=== PATIENT | male | born 1965 ===

== ENCOUNTER → 2025-06-16 | Outpatient (CLI) | payer OTHER ==
[2025-06-16 16:23] LABS: BASOPHILS ABSOLUTE AUTO 0.03 K/mm3 (0.00-0.23); BASOPHILS PERCENT AUTO 0 % (0-2); EOSINOPHILS ABSOLUTE AUTO 0.20 K/mm3 (0.00-0.68); EOSINOPHILS PERCENT AUTO 3 % (0-6); Hematocrit 43.2 % (37.0-53.0); Hemoglobin 14.6 g/dL (13.5-17.5); IMMATURE GRAN ABSOLUTE AUTO 0.01 K/mm3 (0.00-0.10); IMMATURE GRAN PERCENT AUTO 0 % (0-1); LYMPHOCYTES ABSOLUTE AUTO 1.49 K/mm3 (0.84-5.20); LYMPHOCYTES PERCENT AUTO 22 % (21-46); MONOCYTES ABSOLUTE AUTO 0.37 K/mm3 (0.16-1.47); MONOCYTES PERCENT AUTO 5 % (4-13); Mean Corpuscular HGB Conc 33.8 g/dL (31.5-36.5); Mean Corpuscular Volume 91 fL (80-100); NEUTROPHILS ABSOLUTE AUTO 4.83 K/mm3 (1.96-9.15); NEUTROPHILS PERCENT AUTO 70 % (41-73); NRBC ABSOLUTE 0.00 K/mm3 (0.00-0.02); NRBC Auto 0.0 /100 WBC (0.0-0.2); Platelet Count 199 K/mm3 (150-400); RDW Coefficient Variation 12.7 % (11.7-14.2); RDW Standard Deviation 41.8 fL (35.1-46.3)
[2025-06-16 16:33] LABS: Alanine Aminotransfer (ALT/SGP 35.0 U/L (12-78); Albumin, Blood 3.5 g/dL (3.4-5.0); Albumin/Globulin Ratio 0.9 (0.8-1.8); Anion Gap 13.0 mmol/L (6-16); Aspartate Aminotrans (AST/SGOT 23.0 U/L (12-37); Bilirubin, Total 0.3 mg/dL (0.1-1.0); Blood Urea Nitrogen 21.0 mg/dL (8-24); CO2, Blood 27.0 mmol/L (21-32); Calcium, Blood 9.1 mg/dL (8.5-10.1); Chloride, Blood 106.0 mmol/L (98-108); Creatinine, Blood 1.66 mg/dL (0.60-1.20); Globulin, Blood 4.0 g/dL (2.2-4.0); Glucose, Blood 114.0 mg/dL (70-99); Potassium, Blood 3.5 mmol/L (3.5-5.5); Sodium, Blood 142.0 mmol/L (136-145); Total Protein, Blood 7.5 g/dL (6.4-8.2)
== END ==
LOC: LAB SHORT 16:17 → LAB 16:17
PROVIDERS: Physician Assistant
DX: R06.02 Shortness of breath (principal)
CPT/HCPCS: 80053; 83880; 84484; 85025; 85379

== ENCOUNTER 2025-06-17 11:57 | Inpatient (IN) | payer OTHER ==
[~2025-06-17] VITALS: Ht 188 cm; Wt 126.0 kg
[2025-06-17 13:14] LABS: BASOPHILS ABSOLUTE AUTO 0.04 K/mm3 (0.00-0.23); BASOPHILS PERCENT AUTO 0 % (0-2); EOSINOPHILS ABSOLUTE AUTO 0.11 K/mm3 (0.00-0.68); EOSINOPHILS PERCENT AUTO 1 % (0-6); Hematocrit 42.9 % (37.0-53.0); Hemoglobin 14.5 g/dL (13.5-17.5); IMMATURE GRAN ABSOLUTE AUTO 0.02 K/mm3 (0.00-0.10); IMMATURE GRAN PERCENT AUTO 0 % (0-1); LYMPHOCYTES ABSOLUTE AUTO 1.19 K/mm3 (0.84-5.20); LYMPHOCYTES PERCENT AUTO 12 % (21-46); MONOCYTES ABSOLUTE AUTO 0.66 K/mm3 (0.16-1.47); MONOCYTES PERCENT AUTO 7 % (4-13); Mean Corpuscular HGB Conc 33.8 g/dL (31.5-36.5); Mean Corpuscular Volume 91 fL (80-100); NEUTROPHILS ABSOLUTE AUTO 7.83 K/mm3 (1.96-9.15); NEUTROPHILS PERCENT AUTO 80 % (41-73); NRBC ABSOLUTE 0.00 K/mm3 (0.00-0.02); NRBC Auto 0.0 /100 WBC (0.0-0.2); Platelet Count 208 K/mm3 (150-400); RDW Coefficient Variation 12.5 % (11.7-14.2); RDW Standard Deviation 41.2 fL (35.1-46.3)
[2025-06-17 13:21] LABS: C-REACTIVE PROTEIN, EXT RANGE 1.12 mg/dL (0.000-0.300)
[2025-06-17 13:23] LABS: Alanine Aminotransfer (ALT/SGP 32.0 U/L (12-78); Albumin, Blood 3.3 g/dL (3.4-5.0); Albumin/Globulin Ratio 0.8 (0.8-1.8); Anion Gap 6.0 mmol/L (3-11); Aspartate Aminotrans (AST/SGOT 21.0 U/L (12-37); Bilirubin, Total 0.8 mg/dL (0.1-1.0); Blood Urea Nitrogen 15.0 mg/dL (8-24); CO2, Blood 27.0 mmol/L (21-32); Calcium, Blood 8.8 mg/dL (8.5-10.1); Chloride, Blood 105.0 mmol/L (98-108); Creatinine, Blood 1.39 mg/dL (0.60-1.20); Globulin, Blood 4.1 g/dL (2.2-4.0); Glucose, Blood 103.0 mg/dL (70-99); Potassium, Blood 3.6 mmol/L (3.5-5.5); Sodium, Blood 134.0 mmol/L (136-145); Total Protein, Blood 7.4 g/dL (6.4-8.2)
[2025-06-17] MEDS ORDERED: HYDROmorphone HCl/Pf 1MG SYR IV ONE (14:55)
[2025-06-17] MEDS ORDERED: CefTRIAXone Sodium 2,000 MG in NS 100 ML IV ONE (16:10)
[2025-06-17] MEDS ORDERED: Vancomycin (Pharmacy Consult) IV PRN ×2 (16:10→16:35)
[2025-06-17] MEDS ORDERED: Vancomycin HCL 2,500 MG in NS 500 ML IV ONE (16:25)
[2025-06-17] MEDS ORDERED: OxyCODONE 5 mg/Acetamin 325 mg TABLET PO PRN (17:20)
[2025-06-17] MEDS ORDERED: Ondansetron HCl 2 MG / ML 2ML Vial IV PRN (17:20)
[2025-06-17] MEDS ORDERED: HYDROmorphone HCl/Pf 1MG SYR IV PRN (17:20)
[2025-06-17] MEDS ORDERED: Vancomycin (Pharmacy Consult) IV SCH (17:25)
[2025-06-17 18:03] LABS: Appearance, Synovial Fluid Cloudy (Clear); Color, Synovial Fluid Yellow (None-P Yel); Lymphs, Synovial Fluid 2 % (0-15); Neutrophils, Synovial Fluid 98 % (0-24)
[2025-06-17 18:06] LABS: WBC Count, Synovial Fluid 25720 /mm3 (0-180)
[2025-06-17 18:09] LABS: RBC Count, Synovial Fluid 8 /mm3 (0-0)
[2025-06-17] MEDS ORDERED: Cefepime HCl 2,000 MG in NS 100 ML IV ONE (20:00)
[2025-06-17 20:27] VITALS: BP 155/91
[2025-06-17] MEDS ORDERED: Lactobacil 2-S.Thermo-Bifido 1 1 Cap PO SCH (21:00)
[2025-06-18] VITALS (20 sets, daily range): BP systolic 116–166; BP diastolic 80–103
[2025-06-18 03:46] LABS: Source, Urine Clean Catch
[2025-06-18 03:56] LABS: Bilirubin, Urine Neg (Neg); Glucose Qualitative, Urine Neg (Neg); Ketones, Urine Neg (Neg); Leukocyte Esterase, Urine Neg (Neg); Protein, Urine 2+ (Neg); Specific Gravity, Urine 1.020 (1.003-1.022); Urobilinogen, Urine NORM (Normal)
[2025-06-18 03:57] LABS: Color, Urine Yellow (P-Yellow)
[2025-06-18 04:08] LABS: Red Blood Cells, Urine 25-50 /hpf (0-2); White Blood Cells, Urine 0-2 /hpf (0-5)
[2025-06-18 04:12] LABS: U Amphetamine Screen DETECTED; U Barbituate Screen Not Detected; U Benzodiazapine Screen Not Detected; U Buprenorphine Screen Not Detected; U Cannabinoids Screen Not Detected; U Cocaine Screen Not Detected; U Methadone Screen Not Detected; U Methamphetamine Screen DETECTED; U Opiates Screen Not Detected; U Oxycodone Screen DETECTED; U Phencyclidine Screen Not Detected
--- NOTE | 2025-06-18 05:28 | NUR ---
SHIFT SUMMARY ADMITTED FOR SEPTIC ARTHRITIS TO R KNEE. PT DENIES N/T. REPORTS 7/10 PAIN TO R KNEE, MEDICATED VIA EMAR & PT SLEPT SOUNDLY T/O NIGHT. RLE ANGRY RED & W/3+ EDEMA, OUTLINED REDNESS W/MARKER. APPLIED ICE TO R KNEE. HAS BEEN NPO SINCE 0000. PLAN TO HAVE I&D TODAY OF R KNEE. AOX4. VSS. TELE NSR HR 84. REPORTS DYSPNIC W/MINIMAL ACTIVITY, SPO2 >90% ON RA. PLAN TO HAVE ECHO THIS AM. CALL LIGHT IN REACH.
[2025-06-18] MEDS ORDERED: NS 250 ML IV PRN (05:55)
[2025-06-18 05:56] LABS: BASOPHILS ABSOLUTE AUTO 0.04 K/mm3 (0.00-0.23); BASOPHILS PERCENT AUTO 1 % (0-2); EOSINOPHILS ABSOLUTE AUTO 0.18 K/mm3 (0.00-0.68); EOSINOPHILS PERCENT AUTO 2 % (0-6); Hematocrit 42.2 % (37.0-53.0); Hemoglobin 14.2 g/dL (13.5-17.5); IMMATURE GRAN ABSOLUTE AUTO 0.02 K/mm3 (0.00-0.10); IMMATURE GRAN PERCENT AUTO 0 % (0-1); LYMPHOCYTES ABSOLUTE AUTO 1.57 K/mm3 (0.84-5.20); LYMPHOCYTES PERCENT AUTO 18 % (21-46); MONOCYTES ABSOLUTE AUTO 0.87 K/mm3 (0.16-1.47); MONOCYTES PERCENT AUTO 10 % (4-13); Mean Corpuscular HGB Conc 33.6 g/dL (31.5-36.5); Mean Corpuscular Volume 90 fL (80-100); NEUTROPHILS ABSOLUTE AUTO 5.95 K/mm3 (1.96-9.15); NEUTROPHILS PERCENT AUTO 69 % (41-73); NRBC ABSOLUTE 0.00 K/mm3 (0.00-0.02); NRBC Auto 0.0 /100 WBC (0.0-0.2); Platelet Count 170 K/mm3 (150-400); RDW Coefficient Variation 12.5 % (11.7-14.2); RDW Standard Deviation 41.2 fL (35.1-46.3)
[2025-06-18] MEDS ORDERED: Tranexamic Acid 100 ML IV SCH ×2 (06:00→07:20)
[2025-06-18 06:24] LABS: Anion Gap 8 mmol/L (3-11); Blood Urea Nitrogen 16 mg/dL (8-24); CHOL/HDL RATIO 2.2; CO2, Blood 30 mmol/L (21-32); Calcium, Blood 8.4 mg/dL (8.5-10.1); Chloride, Blood 102 mmol/L (98-108); Cholesterol 132 mg/dL (50-200); Creatinine, Blood 1.39 mg/dL (0.60-1.20); Glucose, Blood 98 mg/dL (70-99); HDL Cholesterol 61 mg/dL (>39); LDL/HDL RATIO 1.0; Low Density Lipoprotein Chol 60 mg/dL (0-110); Potassium, Blood 3.7 mmol/L (3.5-5.5); Sodium, Blood 136 mmol/L (136-145); Triglycerides 56 mg/dL (30-160); Very Low Density Lipoprot Chol 11 mg/dL (6-32)
[2025-06-18] MEDS ORDERED: Cefepime HCl 2,000 MG in NS 100 ML IV SCH (07:00)
[2025-06-18] MEDS ORDERED: HYDROmorphone HCl/Pf 1MG SYR IV PRN ×3 (10:40→17:05)
--- NOTE | 2025-06-18 15:36 | NUR ---
PT TO PRE OP
[2025-06-18] MEDS ORDERED: FentaNYL Citrate 50 MCG/ML 2 ML Injection ONE ×3 (15:54→18:28)
[2025-06-18] MEDS ORDERED: FentaNYL Citrate 50 MCG/ML 2 ML Injection IV PRN ×3 (15:55→16:10)
[2025-06-18] MEDS ORDERED: Ondansetron HCl 2 MG / ML 2ML Vial IV PRN ×2 (16:00→17:05)
[2025-06-18] MEDS ORDERED: Midazolam HCl 1MG / ML 2ML Vial IV PRN (16:00)
[2025-06-18] MEDS ORDERED: Albuterol 2.5 MG/3 ML VIAL INH PRN (16:00)
[2025-06-18] MEDS ORDERED: EPINEPhrine HCl 1 MG / ML 30ML Vial ONE (16:53)
[2025-06-18] MEDS ORDERED: Naloxone HCl 0.4MG / ML 1ML Vial IV PRN (17:05)
[2025-06-18] MEDS ORDERED: Magnesium Hydroxide Conc 10 ML UDC PO PRN (17:05)
[2025-06-18] MEDS ORDERED: Ketorolac Tromethamine 15mg Vial IV PRN (17:25)
[2025-06-19 05:01] VITALS: BP 153/85
--- NOTE | 2025-06-19 05:26 | NUR ---
SHIFT SUMMARY POD1 I&D OF R KNEE. DRESSING REMAINS C/D/I. HEMAVAC REMAINS IN PLACE, MINIMAL OUTPUT NOTED. SANGUINEOUS. VSS. PT SLEPT WELL T/O THE NIGHT, MEDICATED FOR PAIN PER EMAR WITH GOOD RESULTS. GOOD URINE OUTPUT NOTED, BUT COLOR APPEARED TO BE DARK, TEA LIKE. PT DID NOT GET OOB D/T PAIN. RLE HAS +3 EDEMA PRESENT, ELEVATED ON PILLOWS AND ICE IN PLACE. CAP REFILL BRISK IN RLE, PULSE MARKED, NOTED TO BE FAINT. PT DENIES N/T IN THIS EXTREMITY. TOLLERATING PO W/O N/V. VSS. OVERALL, NO ACUTE EVENTS T/O THE NIGHT. PLAN FOR CONTINUATION OF CARE AND PT/OT. THE PATIENT IS CURRENTLY SLEEPING, IN NO DISTRESS, CALL LIGHT IN REACH.
[2025-06-19 07:11] VITALS: BP 139/89
[2025-06-19 08:45] LABS: BASOPHILS ABSOLUTE AUTO 0.02 K/mm3 (0.00-0.23); BASOPHILS PERCENT AUTO 0 % (0-2); EOSINOPHILS ABSOLUTE AUTO 0.11 K/mm3 (0.00-0.68); EOSINOPHILS PERCENT AUTO 1 % (0-6); Hematocrit 40.3 % (37.0-53.0); Hemoglobin 13.4 g/dL (13.5-17.5); IMMATURE GRAN ABSOLUTE AUTO 0.02 K/mm3 (0.00-0.10); IMMATURE GRAN PERCENT AUTO 0 % (0-1); LYMPHOCYTES ABSOLUTE AUTO 0.91 K/mm3 (0.84-5.20); LYMPHOCYTES PERCENT AUTO 11 % (21-46); MONOCYTES ABSOLUTE AUTO 0.76 K/mm3 (0.16-1.47); MONOCYTES PERCENT AUTO 9 % (4-13); Mean Corpuscular HGB Conc 33.3 g/dL (31.5-36.5); Mean Corpuscular Volume 92 fL (80-100); NEUTROPHILS ABSOLUTE AUTO 6.62 K/mm3 (1.96-9.15); NEUTROPHILS PERCENT AUTO 79 % (41-73); NRBC ABSOLUTE 0.00 K/mm3 (0.00-0.02); NRBC Auto 0.0 /100 WBC (0.0-0.2); Platelet Count 171 K/mm3 (150-400); RDW Coefficient Variation 12.4 % (11.7-14.2); RDW Standard Deviation 41.9 fL (35.1-46.3)
[2025-06-19] MEDS ORDERED: Enoxaparin 40 MG/0.4 ML SYR SC SCH (09:00)
[2025-06-19 09:21] LABS: Vancomycin, Trough 16.3 ug/mL (5.0-10.0)
[2025-06-19 09:24] LABS: Anion Gap 6.0 mmol/L (3-11); Blood Urea Nitrogen 21.0 mg/dL (8-24); C-REACTIVE PROTEIN, EXT RANGE 10.2 mg/dL (0.000-0.300); CO2, Blood 30.0 mmol/L (21-32); Calcium, Blood 8.6 mg/dL (8.5-10.1); Chloride, Blood 102.0 mmol/L (98-108); Creatinine, Blood 1.56 mg/dL (0.60-1.20); Glucose, Blood 104.0 mg/dL (70-99); Potassium, Blood 3.7 mmol/L (3.5-5.5); Sodium, Blood 134.0 mmol/L (136-145)
--- NOTE | 2025-06-19 10:28 | NUR ---
NOTE GAVE PT TYLENOL. PT TEMP WAS 100.4. AT 0711. PT TEMP OF 0941 IS 96.1. PT REPORTS PAIN. PAIN MANAGED PER EMAR. PT GOT IV ANTIBIOTIC THIS AM.
[2025-06-19 11:48] VITALS: BP 159/76
--- NOTE | 2025-06-19 12:57 | NUR ---
NOTE CAME BY ON THIS RN BREAK. REPORTED TO BADGER DISTILLER OPERATOR THAT "TOOK OUT DRAIN, WILL ORDER IMAGING ON BOTH BILATERAL EXTREMITIES." THIS RN AND CHARGE NOTED THAT POSSIBLE PROCEDURE MIGHT OCCUR TOMORROW DUE TO NEW NPO ORDER AND HOLD BLOOD THINER ORDER IN AM. AWAITING IMAGING. PT REPORTED WORKING WITH PHYSICAL THERAPY IN AM. PT UP IN CHAIR WITH LOWER LEGS ELAVATED.
[2025-06-19 14:21] VITALS: BP 138/93
[2025-06-19 19:22] VITALS: BP 136/89
--- NOTE | 2025-06-19 19:34 | NUR ---
SHIFT SUMMARY PT A&OX4. PT ADMITTED DUE TO R KNEE PAIN. POD1. PT REPORTS PAIN, PAIN MANAGED PER EMAR. PT HAD LOWER EXTREMITY CT AND KNEE XRAY. PT IS A STAND PIVOT TO CHAIR WITH WALKER AND ASSISTANCE, UNSTEADY ON FEET. PT EATS ADEQUATE. CALLED DR. SYKES TO REPORT THIS RN CONCERN OF DECREASED KIDNEY FUNCTION, REPORTED TEA COLOR URINE. AND GFR DECREASED FROM 58 TO 51. C REACT IS 10.2. DR. BROWN REPORTED TO ENCOURAGE ORAL FLUID INTAKE. THIS RN EDUCATED PT ABOUT ORAL FLUID INTAKE. PT IN BED, BED IN LOWEST POSITION, DONNY LIGHT IN REACH. PT WAS UP IN CHAIR FOR AN HOUR TODAY. PT ON TELE, NO TELE REPORTS.
[2025-06-20 00:05] VITALS: BP 137/79
[2025-06-20] MEDS ORDERED: NS 1,000 ML IV SCH ×2 (01:50→13:20)
[2025-06-20 03:50] VITALS: BP 138/77
[2025-06-20 04:24] LABS: BASOPHILS ABSOLUTE AUTO 0.02 K/mm3 (0.00-0.23); BASOPHILS PERCENT AUTO 0 % (0-2); EOSINOPHILS ABSOLUTE AUTO 0.17 K/mm3 (0.00-0.68); EOSINOPHILS PERCENT AUTO 2 % (0-6); Hematocrit 40.0 % (37.0-53.0); Hemoglobin 13.0 g/dL (13.5-17.5); IMMATURE GRAN ABSOLUTE AUTO 0.01 K/mm3 (0.00-0.10); IMMATURE GRAN PERCENT AUTO 0 % (0-1); LYMPHOCYTES ABSOLUTE AUTO 1.13 K/mm3 (0.84-5.20); LYMPHOCYTES PERCENT AUTO 15 % (21-46); MONOCYTES ABSOLUTE AUTO 0.83 K/mm3 (0.16-1.47); MONOCYTES PERCENT AUTO 11 % (4-13); Mean Corpuscular HGB Conc 32.5 g/dL (31.5-36.5); Mean Corpuscular Volume 94 fL (80-100); NEUTROPHILS ABSOLUTE AUTO 5.20 K/mm3 (1.96-9.15); NEUTROPHILS PERCENT AUTO 71 % (41-73); NRBC ABSOLUTE 0.00 K/mm3 (0.00-0.02); NRBC Auto 0.0 /100 WBC (0.0-0.2); Platelet Count 183 K/mm3 (150-400); RDW Coefficient Variation 12.4 % (11.7-14.2); RDW Standard Deviation 42.5 fL (35.1-46.3)
[2025-06-20 04:48] LABS: Anion Gap 5.0 mmol/L (3-11); Blood Urea Nitrogen 22.0 mg/dL (8-24); CO2, Blood 33.0 mmol/L (21-32); Calcium, Blood 8.9 mg/dL (8.5-10.1); Chloride, Blood 102.0 mmol/L (98-108); Creatinine, Blood 1.52 mg/dL (0.60-1.20); Glucose, Blood 95.0 mg/dL (70-99); Potassium, Blood 3.7 mmol/L (3.5-5.5); Sodium, Blood 136.0 mmol/L (136-145)
--- NOTE | 2025-06-20 06:19 | NUR ---
SHIFT SUMMARY POD 1 RIGHT KNEE I&D. DRESSING/ROSCOE WRAP CDI. RLE ELEVATED ON PILLOWS. PAIN MANAGED PER EMAR. ABX/IVF INFUSED DIRECTED. NPO SINCE MIDNIGHT. PT A/OX4 WITH VSS. HAS CALL LIGHT IN REACH. WILL GIVE REPORT TO ONCOMING RN.
[2025-06-20 07:15] VITALS: BP 148/89
--- NOTE | 2025-06-20 07:42 | NUR ---
pt to imaging at this time.
[2025-06-20 08:34] LABS: BASOPHILS ABSOLUTE AUTO 0.02 K/mm3 (0.00-0.23); BASOPHILS PERCENT AUTO 0 % (0-2); EOSINOPHILS ABSOLUTE AUTO 0.14 K/mm3 (0.00-0.68); EOSINOPHILS PERCENT AUTO 2 % (0-6); Hematocrit 39.9 % (37.0-53.0); Hemoglobin 13.5 g/dL (13.5-17.5); IMMATURE GRAN ABSOLUTE AUTO 0.01 K/mm3 (0.00-0.10); IMMATURE GRAN PERCENT AUTO 0 % (0-1); LYMPHOCYTES ABSOLUTE AUTO 1.08 K/mm3 (0.84-5.20); LYMPHOCYTES PERCENT AUTO 14 % (21-46); MONOCYTES ABSOLUTE AUTO 0.73 K/mm3 (0.16-1.47); MONOCYTES PERCENT AUTO 10 % (4-13); Mean Corpuscular HGB Conc 33.8 g/dL (31.5-36.5); Mean Corpuscular Volume 92 fL (80-100); NEUTROPHILS ABSOLUTE AUTO 5.62 K/mm3 (1.96-9.15); NEUTROPHILS PERCENT AUTO 74 % (41-73); NRBC ABSOLUTE 0.00 K/mm3 (0.00-0.02); NRBC Auto 0.0 /100 WBC (0.0-0.2); Platelet Count 177 K/mm3 (150-400); RDW Coefficient Variation 12.3 % (11.7-14.2); RDW Standard Deviation 41.6 fL (35.1-46.3)
[2025-06-20 08:51] LABS: Vancomycin, Trough 16.2 ug/mL (5.0-10.0)
[2025-06-20 15:43] VITALS: BP 154/95
--- NOTE | 2025-06-20 17:50 | NUR ---
SHIFT SUMMARY POD 2 I&D PT REPORTS PAIN IMPROVED IN R KNEE, ABLE TO AMBULATE IN THE HALLS TODAY. DRESSING TO R KNEE CHANGED PER DR. PADGETT. L KNEE BEDSIDE ASPIRATION TODAY. PT TOLERATED PROCEDURE WELL. REPORTS FEELING HUNGRY. PLAN IS TO BE NPO AT MIDNIGHT FOR POSSIBLE PROCEDURE TOMORROW.
[2025-06-20 18:31] LABS: BODY FLUID RBC 0.004 M/mm3 (0-0)
[2025-06-20 18:45] LABS: RBC Count, Synovial Fluid 4000 /mm3 (0-0)
[2025-06-20 18:46] LABS: WBC Count, Synovial Fluid 18260 /mm3 (0-180)
[2025-06-20 19:29] LABS: Appearance, Synovial Fluid Cloudy (Clear); Color, Synovial Fluid Pale Yellow (None-P Yel); Monocytes/Macrophages, Synovia 4 % (0-65); Neutrophils, Synovial Fluid 96 % (0-24)
[2025-06-20 19:55] VITALS: BP 134/77
[2025-06-20 23:49] VITALS: BP 171/92
[2025-06-21] VITALS (20 sets, daily range): BP systolic 108–176; BP diastolic 64–115
[2025-06-21] MEDS ORDERED: Albuterol HFA200 ACT/6.7 GM INH INH PRN (03:35)
--- NOTE | 2025-06-21 04:15 | NUR ---
REPORTED SOB EPISODE. PT CALLED AT APPROXIMATELY 0320 THIS AM REPORTING SHORTNESS OF BREATH. PT HAD TAKEN CONTINOUS BIOX STICKER OFF, REPLACED BACK ON BY STAFF. PT STATES THIS HAPPENS AT TIMES WHEN HE BENDS OVER DUE TO HIS "HERNIA". PT PLACED ON 1.5 L OF O2 VIA N/C SATS UP TO 97%. PT DENIES CHEST PAIN OR PRESSURE, TELEMETRY INTACT AND NSR IN 80S. PT STATES HE USES AN OVER THE COUNTER INHALER AT HOME BUT DOES NOT KNOW THE NAME. PT WHEEZY IN THE BASES. ARMORED VEHICLE OFFICER OBTAINED ORDERS FOR RT ASSESSMENT AND TREATMENT. RT GAVE BREATHING TX, PT REPORTS IMPROVEMENT IN SX.
--- NOTE | 2025-06-21 06:12 | NUR ---
SHIFT SUMMARY NOC. PT S/P RIGHT KNEE I&D AND LEFT KNEE ASPIRATION. PT HAS BEEN NPO SINCE 0000. PT A/O X4, VOIDING URINE AND MEDICATED FOR PAIN WITH ORAL OXY AND TYLENOL EARLIER IN SHIFT. PT REPORTS PAIN THIS MORNING BUT DECLINED OXY AND STATED "THEY DO NOT WORK". EDUCATION PROVIDED, PT STATED "I DON'T WANT ANYTHING THEN". PT FALLS ASLEEP QUICKLY WHILE THIS RN IS IN THE ROOM. PT HAS NO FACIAL GRIMACING, NO CRY, NO RESTLESSNESS OR FIDGITING. PT'S DRESSING ON RIGHT KNEE IS C/D/I. PT MAKES NEEDS KNOWN, CALL LIGHT IN REACH.
[2025-06-21 10:00] LABS: Hematocrit 40.6 % (37.0-53.0); Hemoglobin 13.8 g/dL (13.5-17.5); Mean Corpuscular HGB Conc 34.0 g/dL (31.5-36.5); Mean Corpuscular Volume 91 fL (80-100); NRBC ABSOLUTE 0.00 K/mm3 (0.00-0.02); NRBC Auto 0.0 /100 WBC (0.0-0.2); Platelet Count 220 K/mm3 (150-400); RDW Coefficient Variation 12.0 % (11.7-14.2); RDW Standard Deviation 40.2 fL (35.1-46.3)
[2025-06-21 10:22] LABS: Anion Gap 5.0 mmol/L (3-11); Blood Urea Nitrogen 18.0 mg/dL (8-24); C-REACTIVE PROTEIN, EXT RANGE 5.95 mg/dL (0.000-0.300); CO2, Blood 32.0 mmol/L (21-32); Calcium, Blood 9.1 mg/dL (8.5-10.1); Chloride, Blood 102.0 mmol/L (98-108); Creatinine, Blood 1.21 mg/dL (0.60-1.20); Glucose, Blood 98.0 mg/dL (70-99); Potassium, Blood 4.2 mmol/L (3.5-5.5); Sodium, Blood 135.0 mmol/L (136-145); Uric Acid, Blood 5.3 mg/dL (3.5-7.2)
--- NOTE | 2025-06-21 12:02 | NUR ---
PT PREPARING TO GO TO PRE OP
--- NOTE | 2025-06-21 12:33 | NUR ---
RECEIVED REPORT FROM RODO SHARP WHEN ARRIVING TO UNIT. PT REFUSED TO REMOVE SHORTS FOR PROCEDURE. History, Chart, Medications and Allergies reviewed before start of procedure. Pre-Op teaching done. Pt verbalizes understanding. NO PAS OR INNA HOSE IN PLACE DUE TO INJ ON BOTH BILATERAL LOWER EXTREMETIES. ALL BELONGINGS LEFT IN PT'S ROOM.
[2025-06-21] MEDS ORDERED: Tranexamic Acid 100 ML IV SCH (13:35)
[2025-06-21] MEDS ORDERED: FentaNYL Citrate 50 MCG/ML 2 ML Injection ONE (13:39)
[2025-06-21] MEDS ORDERED: Ondansetron HCl 2 MG / ML 2ML Vial ONE (13:49)
[2025-06-21] MEDS ORDERED: EPINEPhrine HCl 1 MG / ML 30ML Vial ONE (14:03)
[2025-06-21] MEDS ORDERED: Tranexamic Acid 100 ML IV ONE (14:10)
[2025-06-21] MEDS ORDERED: Ondansetron HCl 2 MG / ML 2ML Vial IV PRN (14:20)
[2025-06-21] MEDS ORDERED: FentaNYL Citrate 50 MCG/ML 2 ML Injection IV PRN ×2 (14:20→14:30)
[2025-06-21] MEDS ORDERED: Prochlorperazine Edisylate 10 mg Vial IV PRN (14:25)
[2025-06-21] MEDS ORDERED: HYDROmorphone HCl/Pf 1MG SYR IV PRN (14:30)
[2025-06-21] MEDS ORDERED: Albuterol 2.5 MG/3 ML VIAL INH PRN (14:30)
[2025-06-21] MEDS ORDERED: Metoclopramide HCl 5MG / ML 2ML Vial IV PRN (14:30)
[2025-06-21] MEDS ORDERED: Bupivacaine 0.5% W/EPI 1:200000 SDV 30 ML Vial ONE (14:43)
--- NOTE | 2025-06-21 16:15 | NUR ---
PT ARRIVED BACK TO UNIT FROM PACU. PT REPORTED 7-8/10 PAIN, MEDICATED PER ORDERS W/DILAUDID. PT REPORTS SLIGHTLY BETTER, WANTS TO SLEEP. PROVIED PEPSI, WATER AND SNACKS. CALL LIGHT IN REACH. DRESSING TO L KNEE W/HEMOVAC CDI. HEMOVAC COMPRESSED W/SS DRAINAGE NOTED.
--- NOTE | 2025-06-21 17:21 | NUR ---
summary NO ACUTE CHANGES SINCE ARRIVING BACK TO UNIT FROM PACU. PT RESTING IN BED, DINNER PROVIDED. MEDICATED ONCE WITH 0.5 MG DILAUDID AFTER RETURN TO ROOM FOR 07/09 PAIN, PT STATED BROUGHT DOWN TO 710 AND SLEPT SOUNDLY. P HAD HIGH BP OF 176/115 WHILE SLEEPING, APPEARED TO BE DREAMING. RECHECKED WHEN ADMINSISTERED TXA PER ORDERS AND BP HAD IMPROVED TO 140S. DRESSING TO L KNEE CDI. HEMOVAC COMPRESSED. CALL LIGHT IN REACH.
--- NOTE | 2025-06-21 18:29 | NUR ---
CHANGED DRESSING TO R KNEE PER ORDERS.
[2025-06-22] VITALS (7 sets, daily range): BP systolic 143–172; BP diastolic 86–99
[2025-06-22 04:51] LABS: Anion Gap 6.0 mmol/L (3-11); Blood Urea Nitrogen 24.0 mg/dL (8-24); CO2, Blood 33.0 mmol/L (21-32); Calcium, Blood 8.7 mg/dL (8.5-10.1); Chloride, Blood 104.0 mmol/L (98-108); Creatinine, Blood 1.53 mg/dL (0.60-1.20); Glucose, Blood 108.0 mg/dL (70-99); Potassium, Blood 4.0 mmol/L (3.5-5.5); Sodium, Blood 139.0 mmol/L (136-145)
--- NOTE | 2025-06-22 06:14 | NUR ---
SHIFT SUMMARY PT POD 0 LEFT KNEE I&D. PT HAS RESTED MOST OF THE NIGHT, PAIN MANAGED PER EMAR. DRESSINGS TO BLE C/D/I. HEMOVAC IN PLACE TO LEFT KNEE 20 CC DRAINED THIS SHIFT. PT VOIDING AND TOLERATING PO INTAKE. IV ABX PER ORDERS. BED IN LOWEST POSITION, CALL LIGHT WITHIN REACH.
[2025-06-22] MEDS ORDERED: NS 1,000 ML IV SCH (13:30)
[2025-06-22] MEDS ORDERED: Colchicine 0.6 MG TAB PO SCH (14:00)
--- NOTE | 2025-06-22 17:06 | NUR ---
SHIFT SUMMARY NO ACUTE CHANGES TODAY. BILAT ROSCOE WRAP DRESSINGS TO BLE ARE CDI. PT HAS BEEN INDEP IN ROOM WITH WALKER. ROXICODONE FOR PAIN CONTROL. IV ABX PER ORDERS. ID CONSULT TODAY. CARE MANAGEMENT WORKING ON DISCHARGE PLAN. PT USES CALL LIGHT APPROPRIATELY.
[2025-06-23 03:28] VITALS: BP 157/96
--- NOTE | 2025-06-23 04:51 | NUR ---
SHIFT SUMMARY FRANCOISE WAS ALERT AND FULLY ORIENTED ON ASSESSMENT. PT IND IN ROOM. VOIDING APPROPRIATELY. DRESSINGS TO BILAT KNEES CHANGED ON DAY SHIFT, CURRENTLY C/D/I. PAIN WELL MANAGED, CIRCULATION TO BILAT FEET INTACT. DENIES SOB, NAUSEA, CHEST PRESSURE. NO ACUTE EVENTS TONIGHT NO NOTED CHANGES TO PT CONTIDION.
[2025-06-23 05:04] LABS: Hematocrit 44.3 % (37.0-53.0); Hemoglobin 15.3 g/dL (13.5-17.5); Mean Corpuscular HGB Conc 34.5 g/dL (31.5-36.5); Mean Corpuscular Volume 91 fL (80-100); NRBC ABSOLUTE 0.00 K/mm3 (0.00-0.02); NRBC Auto 0.0 /100 WBC (0.0-0.2); RDW Coefficient Variation 12.4 % (11.7-14.2); RDW Standard Deviation 41.2 fL (35.1-46.3)
[2025-06-23 05:36] LABS: Anion Gap 9.0 mmol/L (3-11); Blood Urea Nitrogen 20.0 mg/dL (8-24); CO2, Blood 29.0 mmol/L (21-32); Calcium, Blood 8.9 mg/dL (8.5-10.1); Chloride, Blood 102.0 mmol/L (98-108); Creatinine, Blood 1.19 mg/dL (0.60-1.20); Glucose, Blood 97.0 mg/dL (70-99); Potassium, Blood 4.4 mmol/L (3.5-5.5); Sodium, Blood 136.0 mmol/L (136-145)
[2025-06-23 06:07] LABS: Platelet Count 199 K/mm3 (150-400)
--- NOTE | 2025-06-23 08:40 | NUR ---
THIS TERMITE CONTROL TECHNICIAN OFFERED TO GET PATIENT UP TO CHAIR FOR BREAKFAST.PATIENT DECLINED AN DANGLED AT BEDSIDE. THIS TERMITE CONTROL TECHNICIAN OFFERED BATH ITEMS AND BEDDING CHANGE, PATIENT STATED, "MAYBE LATER." WILL RE-OFFER LATER.
[2025-06-23] MEDS ORDERED: ALBU90OI INH (11:43)
[2025-06-23] MEDS ORDERED: AMLO5 PO (11:43)
[2025-06-23] MEDS ORDERED: DOCU100 PO (11:44)
[2025-06-23] MEDS ORDERED: COLCHICINE0.6 MG PO (11:44)
[2025-06-23] MEDS ORDERED: MOXI400 PO (11:45)
[2025-06-23] MEDS ORDERED: PROBIOTIC ACID1 EAC8 PO (11:46)
--- NOTE | 2025-06-23 13:47 | NUR ---
DISCHARGE PATIENT VSS, TAKES SHOWER, PARTICIPATES IN PT/OT. USES FWW, BILAT KNEE DRESSINGS CHANGED. ALL BELONGONGS PACKED AND DC INSTRCUTIONS READ AND SIGNED. POWER GLIDE TAKEN OUT INTACT. FWW DELIVERED TO ROOM. AND PATIENT IS WHEELED OUT TO PRIVATE CAR.
== END 2025-06-23 13:04 | disposition home health service (06) | DRG 549 ==
LOC: ER 11:57 → SURS 17:17 → ERHOLD 17:17 → SURS 20:20
PROVIDERS: Internal Medicine; Nurse Practitioner Acute Care; Orthopaedic Surgery; Physician Assistant; ADMIT Student in an Organized Health Care Education/Training Program
PROC: 0S9C4ZZ Drainage of Right Knee Joint, Percutaneous Endoscopic Approach (ICD-10-PCS; principal; 2025-06-18 16:00)
PROC: 0S9D4ZZ Drainage of Left Knee Joint, Percutaneous Endoscopic Approach (ICD-10-PCS; 2025-06-21)
DX: M00.9 Pyogenic arthritis, unspecified (principal); E87.1 Hypo-osmolality and hyponatremia; L03.115 Cellulitis of right lower limb; N17.9 Acute kidney failure, unspecified; I12.9 Hypertensive chronic kidney disease with stage 1 through stage 4 chronic kidney disease, or unspecified chronic kidney disease; M65.861 Other synovitis and tenosynovitis, right lower leg; N18.30 Chronic kidney disease, stage 3 unspecified; K44.9 Diaphragmatic hernia without obstruction or gangrene; E66.9 Obesity, unspecified; F15.10 Other stimulant abuse, uncomplicated; E66.01 Morbid (severe) obesity due to excess calories; I87.8 Other specified disorders of veins; Z88.2 Allergy status to sulfonamides; Z88.0 Allergy status to penicillin
CPT/HCPCS: 36415; 73560-LT; 73562-RT; 73701; 80048; 80053; 80061; 80202; 81001; 82550; 83036; 83605; 83880; 84550; 85025; 85027; 85651; 86140; 87040; 87070; 87075; 87205; 89051; 89060; 93005; 93010; 93306; 93971; 94640; 94664; 94762; 96365; 96375; 97110; 97112; 97116; 97161; 97165; 97535; 99284-25; A9270; C1751; J0165; J0692; J0696; J1171; J1650; J2003; J2405; J2704; J3010; J3373; J7030; J7040; J7050; J7120; Q9967